=== PATIENT | female | born 1945 | race Caucasian/White ===

== ENCOUNTER 2025-03-30 09:33 | Inpatient (IN) | payer MEDICARE, OTHER ==
[~2025-03-30] VITALS: Ht 157.5 cm; Wt 55.9 kg
[~2025-03-30 09:33] MED LIST: ADULT LOW DOSE81 MG PO; ALDACTONE25 MG PO; ALPRAZOLAM0.25 MG PO; AMARYL2 MG PO; AMBIEN5 MG PO; AMITRIPTYLINE H10 MG PO; AMLODIPINE BESYL5 MG PO; ANASTROZOLE1 MG PO; ATORVASTATIN CA80 MG PO; CALCIUM 500 MG1 EAC1 PO; CARVEDILOL12.5 MG PO; COREG25 MG PO; ENTRESTO 24 MG1 EACH PO; FARXIGA10 MG PO; FOSAMAX70 MG PO; GABAPENTIN100 MG PO; HYDROCHLOROTHIA25 MG PO; JANUMET XR 1001 EACH PO; LEVOTHYROXINE75 MCG PO; LEVOTHYROXINE88 MCG PO; LOSARTAN POTAS100 MG PO; MULTI VITAMIN1 EACH PO; NORCO 7.5-3251 EACH PO; PERCOCET 7.5-31 EACH PO; POTASSIUM99 M2 PO; TRULICITY0.75 MG/0.; TRULICITY1.5 MG/0.5; TRULICITY3 MG/0.5 M SUB-Q; VITAMIN D400 UNI1 PO
[2025-03-30] MEDS ORDERED: IBLOOD GLUCOSE TEST STRIP 1 EA TEST XX ONE (10:00)
[2025-03-30] MEDS ORDERED: FUROSEMIDE20 MG PO (10:11)
[2025-03-30 10:18] LABS: BASOPHILS 0.2 % (0.1-1.2); EOSINOPHILS 0.8 % (0.7-5.8); LYMPHOCYTES 22.8 % (19.3-51.7); MCH 29.8 PG (25.6-32.2); MCHC 32.8 g/dL (32.2-35.5); MCV 91.0 fL (79.4-94.8); MONOCYTES 6.8 % (4.7-12.5); NEUTROPHILS 69.1 % (34.0-71.1); RBC 4.56 M/uL (3.93-5.22)
[2025-03-30 10:26] LABS: CORONAVIRUS COVID-19 AG POSITIVE (NEGATIVE)
[2025-03-30] MEDS ORDERED: SODIUM CHLORIDE 0.9% 1,000 ML IV PRN (10:30)
[2025-03-30 10:38] LABS: ALT (SGPT) 25.0 U/L (14-59); AST (SGOT) 20.0 U/L (15-37); GLOMERULAR FILTRATION RATE,EST 67.0 mL/min (>60); PROTEIN, TOTAL 7.4 g/dL (6.4-8.2); UREA NITROGEN 27.0 mg/dL (7-18)
[2025-03-30] MEDS ORDERED: ACETAMINOPHEN 325 MG TAB PO PRN (13:00)
[2025-03-30] MEDS ORDERED: ATORVASTATIN CA40 MG PO (14:05)
[2025-03-30] MEDS ORDERED: LEVOTHYROXINE75 MCG PO (14:06)
[2025-03-30] MEDS ORDERED: GLIPIZIDE ER2.5 MG PO (14:07)
[2025-03-30] MEDS ORDERED: GABAPENTIN300 MG PO (14:08)
[2025-03-30 15:15] VITALS: BP 126/77
--- NOTE | 2025-03-30 15:15 | NUR ---
PT ADMITTD TO ROOM 116 FROM ED VIA STRETCHER. PT ABLE TO AMBULATE WITH SBA TO BRP UPON ENTERING THE ROOM. PT ADMISSION ASSESSMENT AND HISTORY COMPLETED. PT JUST RETURNED FROM [facility] [employer] ON 03/28/2025 AND REPORTED SHE HAD BEEN FEELINLG ILL FOR A COUPLE OF WEEKS, STATED MANY PEOPLE ON THE SHIP WERE SICK. SHE TESTED + FOR COVID AND MRI FOR DIZZINESS REVEALS L CEREBELLAR INFARCT. NO DEFICITS NOTED. PT PLACED ON TELE# 3, IV SL TO R FA. PT ORIENTED TO ROOM AND CALL SORENSON. SIDERAILS UP X2, CALL SORENSON IN REACH. PT INSTRUCTED TO CALL FOR ASSISTANCE PRN.
[2025-03-30 15:23] VITALS: BP 126/66
[2025-03-30] MEDS ORDERED: GABAPENTIN 300 MG CAP PO SCH (17:00)
[2025-03-30] MEDS ORDERED: VITAMIN D325 MCG PO (17:15)
--- NOTE | 2025-03-30 17:16 | NUR ---
MED REC COMPLETE
[2025-03-30 18:38] VITALS: BP 113/73
[2025-03-30 18:40] VITALS: BP 113/73
--- NOTE | 2025-03-30 19:11 | NUR ---
PT CARED FOR T/O SHIFT WITHOUT C/O. PT TOLERATED ORALS WITHOUT ISSUE. REPORT GIVEN TO IGGY MORATAYA.
--- NOTE | 2025-03-30 19:35 | NUR ---
REPORT RECEIVED FROM DAY SHIFT RN. PT RESTING IN BED. SAFETY PRECAUTIONS MAINTAINED. CALL LIGHT WITHIN REACH. WILL CONTINUE TO MONITOR.
[2025-03-30] MEDS ORDERED: IBLOOD GLUCOSE TEST STRIP 1 EA TEST XX PRN (19:45)
[2025-03-30] MEDS ORDERED: DEXTROSE 5% 1,000 ML IV PRN (19:45)
[2025-03-30] MEDS ORDERED: DEXTROSE 50% 50 ML SYR IV PRN ×2 (19:45)
[2025-03-30] MEDS ORDERED: GLUCAGON,HUMAN RECOMBINANT 1 MG/ML VIAL SUB-Q PRN (19:45)
--- NOTE | 2025-03-30 20:58 | NUR ---
PT ASSISTED OOB TO BRP. SLOW STEADY GAIT, SBA, NO LOB. PT DOES REPORT DIZZINESS UPON RISING. PT INSTRUCTED TO CALL FOR ASSITANCE OOB AND PRN. FWW BROUGHT TO ROOM. CALL SORENSON IN REACH, BED IN LOW POSITION AND LOCKED, SIDERAILS UP X3.
[2025-03-30] MEDS ORDERED: IBLOOD GLUCOSE TEST STRIP 1 EA TEST VI SCH ×2 (21:00)
[2025-03-30] MEDS ORDERED: INSULIN LISPRO 100 UNIT/ML ML SUB-Q SCH (21:00)
[2025-03-30 21:03] VITALS: BP 135/74
[2025-03-30 21:05] VITALS: BP 135/74
--- NOTE | 2025-03-30 21:39 | NUR ---
PT ASSESSED AND MEDICATIONS GIVEN. VSS. PT IS SATING WELL ON RA. TELE READING NSR. TYLENOL GIVEN FOR CHRONIC BACK PAIN. PT UP SBA TO BATHROOM. IV SITE CHANGED TO LEFT ARM FROM RIGHT ARM DUE TO RIGHT BREAST LUMPECTOMY. IV FLUSHED WELL, SL. ISOLATION PRECSUTIONS MAINTAINED. SAFETY RPECAUTIONS MAINTAINED. CALL LIGHT WITHIN REACH. WILL CONTINUE TO MONITOR.
[2025-03-31] VITALS (8 sets, daily range): BP systolic 119–149; BP diastolic 68–79
[2025-03-31 05:35] LABS: BASOPHILS 0.2 % (0.1-1.2); EOSINOPHILS 2.9 % (0.7-5.8); LYMPHOCYTES 31.6 % (19.3-51.7); MCH 29.7 PG (25.6-32.2); MCHC 31.9 g/dL (32.2-35.5); MCV 93.0 fL (79.4-94.8); MONOCYTES 10.9 % (4.7-12.5); NEUTROPHILS 53.8 % (34.0-71.1); RBC 4.01 M/uL (3.93-5.22)
[2025-03-31 05:47] LABS: GLOMERULAR FILTRATION RATE,EST 88.0 mL/min (>60); UREA NITROGEN 19.0 mg/dL (7-18)
[2025-03-31] MEDS ORDERED: LEVOTHYROXINE SODIUM 75 MCG TAB PO SCH (06:00)
--- NOTE | 2025-03-31 06:10 | NUR ---
PT RESTED WELL DURING THE SHIFT. VSS. O2 AT 1L NC APPLIED DURING THE SHIFT. DUE TO O2 SAT BEING IN THE HIGH 80'S. PT SATING WELL ON 1L NC WHILE ASLEEP. RA WHILE AWAKE. TELE READING NSR. PT STATED THAT SHE IS FEELING BETTER THIS MORNING. PT UP SBA WITH FWW TO THE BATHROOM, VOIDING WELL. TYLENOL GIVEN FOR CHRONIC BACK PAIN. SAFETY PRECAUTIONS MAINTAINED. CALL LIGHT WITHIN REACH. WILL CONTINUE TO MONITOR.
--- NOTE | 2025-03-31 07:11 | NUR ---
RECEIVED REPORT FROM NIGHT RN - HOOD. PATIENT RESTING IN BED, TELE IN PLACE SATS 94% ON RA, SR IN THE 70'S. PT IN AIRBORNE PRECUATIONS, EYES CLOSED WHEN ROUNDING. THIS RN ALLOWS PATIENT TO REST
--- NOTE | 2025-03-31 07:36 | NUR ---
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 MEDICARE INPATIENT 03/30/25 @ 1307 NO AUTH REQ PER MEDICARE GUIDELINES DISCHARGE DISPO PENDING FURTHER PT/OT EVAL
[2025-03-31] MEDS ORDERED: ASPIRIN 81 MG TABEC PO SCH (08:00)
--- NOTE | 2025-03-31 08:23 | NUR ---
MOM[facility] TEACHER BROUGHT THIS RN A PILL FROM PATIENT ROOM, APPEARS TO BE A TYLENOL ([id number]). PILL WAS WASTED IN BLACK BIN IN MED ROOM.
--- NOTE | 2025-03-31 08:45 | NUR ---
THIS RN PRESENT FOR ASSESSMENT. PT HAS THICK/MOIST COUGH, STATES SHE IS STARTED TO GET SOME STUFF UP, HAS A RUNNY NOSE. PT STATES SHE FEELS MUCH BETTER. TOLERATED MEDS WITHOUT ISSUES. HAS BETTER APPETITE THIS MORNING, ATE ABOUT 40% ON BREAKFAST/ALL OF COFFEE. PT STATES SHE BELIEVES SHE MAY HAVE DEVELOPED HIVES FROM [place] PREVIOUSLY BUT SHE IS UNSURE, SHE WOULD LIKE TO TRY THE [place] AND WILL NOTIFY IF SHE DEVELOPS RASH/HIVES, MD INFORMED AND WILL MONITOR. LS CLEAR THROUGHOU, NO EDEMA. PT REFUSED HER MIRALAX THIS MORNING - STATES HAD BOUT OF DIARRHEA YESTERDAY. CBG 139, NO INSULIN PER SLIDING SCALE. PT ARRIVES AT END OF VISIT WITH PATIENT TO GET UP TO CHAIR. ALL PT CARE NEEDS MET, VS COMPLETED PRIOR TO LEAVING ROOM. CALL LIGHT WITHIN REACH.
[2025-03-31] MEDS ORDERED: FUROSEMIDE 20 MG TAB PO SCH (09:00)
[2025-03-31] MEDS ORDERED: PANTOPRAZOLE SODIUM 40 MG TABEC PO SCH (09:00)
[2025-03-31] MEDS ORDERED: POLYETHYLENE GLYCOL 3350 1 PACKET PO SCH (09:00)
[2025-03-31] MEDS ORDERED: ATORVASTATIN 40 MG TAB PO SCH (09:00)
[2025-03-31] MEDS ORDERED: CLOPIDOGREL BISULFATE 75 MG TAB PO SCH (09:00)
--- NOTE | 2025-03-31 09:23 | NUR ---
HOURLY ROUNDING PATIENT SITTING IN RECLINER CHAIR, DAUGHTER IS AT BEDSIDE NO REQUEST FROM PATIENT. BOARD HAS BEEN UPDATED AND CALL LIGHT PLACED WITHIN REACH
--- NOTE | 2025-03-31 10:30 | NUR ---
ALERT AND ORIENTED IN BED. FRIEND IN ROOM. PATIENT LIVES IN DOUBLE WIDE WITH 4 STEPS TO GET INSIDE. PATIENT STATES THEY ARE NOT AN ISSUE FOR HER. SHE HAS A WALKER, CANE AND SHOWER CHAIR AT HOME. PATIENT DRIVES AT BASELINE AND DENIES ANY FINANCIAL ISSUES. DISCUSSED PT RECOMMENDATION FOR OUTPATIEN PT, STATES DR. SALGADO HAS ALREADY SENT ORDERS TO [facility] FOR OUTPATIENT PT AND SHE WILL BEGIN THAT SHORTLY. DENIES ANY CM NEEDS AT THIS TIME. REQUESTING A COOKIE, CHARGE NURSE NOTIFIED. NO CM NEEDS AT THIS TIME. DR. SORENSON UPDATED.
[2025-03-31] MEDS ORDERED: CLOPIDOGREL75 MG PO (11:33)
[2025-03-31] MEDS ORDERED: MECLIZINE HCL25 MG PO (11:52)
[2025-03-31] MEDS ORDERED: PHARMACY RENAL DOSE ADJUSTMENT 1 DOSE MISC PO SCH (12:00)
--- NOTE | 2025-03-31 18:05 | EKG ---
[facility] [address] [place], [place] [address] Signed Normal sinus rhythm Left axis deviation Possible Anterior infarct , age undetermined Abnormal ECG No previous ECGs available Confirmed by VASU SORENSON MD ([id number]) on 03/31/2025 6:05:16 PM Electronically Signed By: VASU SORENSON 03/31/25 180 PATIENT NAME: MARLI RAMIREZ Electrocardiogram DATE OF : 43 PHYSICIAN: VASU SORENSON REPORT #: [id number] REPORT IS CONFIDENTIAL AND NOT TO BE RELEASED WITHOUT AUTHORIZATION
== END 2025-03-31 12:00 | disposition home or self-care (01) | DRG 64 ==
LOC: ED 09:33 → MS 13:52
PROVIDERS: Emergency Medicine; ADMIT Internal Medicine; ATTEND Internal Medicine
DX: I63.89 Other cerebral infarction (principal); U07.1 COVID-19; I50.32 Chronic diastolic (congestive) heart failure; I11.0 Hypertensive heart disease with heart failure; E03.9 Hypothyroidism, unspecified; E78.00 Pure hypercholesterolemia, unspecified; R42 Dizziness and giddiness; E11.9 Type 2 diabetes mellitus without complications; Z85.3 Personal history of malignant neoplasm of breast; Z88.0 Allergy status to penicillin; Z88.6 Allergy status to analgesic agent; Z88.5 Allergy status to narcotic agent; Z90.11 Acquired absence of right breast and nipple; Z79.85 Long-term (current) use of injectable non-insulin antidiabetic drugs; Z79.84 Long term (current) use of oral hypoglycemic drugs; Z79.890 Hormone replacement therapy; Z79.82 Long term (current) use of aspirin
CPT/HCPCS: 36415; 70551; 71045; 80048; 80053; 83735; 84484; 85025; 93005; 93010; 93306; 93880; 94762; 96360; 97162; 97166; 97535; 99285-25; A9270; J7030